=== PATIENT | female | born 1945 | race Caucasian/White ===

== ENCOUNTER 2021-05-24 13:35 | Emergency (ER) | payer MEDICARE, SELFPAY ==
[2021-05-24 13:37] VITALS: BP 150/74; PULSE 104; RESP 20; TEMP 37.4; O2SAT 89; BMI 26.9
[2021-05-24 13:48] VITALS: O2SAT 89
[2021-05-24 14:02] VITALS: BP 144/68; PULSE 82; RESP 16; TEMP 36.8; O2SAT 93
--- NOTE | 2021-05-24 14:35 | EDS_ITS ---
HPI History of Present Illness Chief Complaint: Shortness of Breath Narrative Narrative: Patient presenting due to potential complications of coronavirus. Patient states that she has been sick for around a week now, she has not had a confirmatory test which she has all of the correct symptoms. Patient states she has been having waxing and waning fevers, dry nonproductive cough. She reports that she has been having nausea with decreased p.o. intake as well as some loose stools. Patient denies any chest pain. She is not significantly short of breath. She does report that she feels weak and dehydrated. Patient has an underlying history of hypertension, she denies any underlying history of lung disease. Review of systems otherwise negative. PFSH PFSH Home Medications losartan 50 mg PO DAILY 05/24/21 [History Last Taken Unknown] ondansetron 8 mg PO Q8H PRN PRN #20 tab 05/24/21 [Rx Last Taken Unknown] Allergy/AdvReac Type Severity Reaction Status Date / Time codeine Allergy Shortness Verified 05/24/21 13:37 of breath Social History Smoking Status: Never smoker ROS ROS ED Constitutional Constitutional ED: Reports fever(s) and other Details: Malaise and generalized weakness ENT ENT ED: Denies rhinorrhea Cardiovascular Cardiovascular: Denies chest pain Respiratory/Chest Respiratory/Chest: Reports cough Gastrointestinal Gastrointestinal: Reports nausea Genitourinary Genitourinary ED: Denies dysuria or hematuria Musculoskeletal Musculoskeletal: Denies back pain Integumentary Denies rash Neurologic Neurologic: Denies paresthesias or weakness Psychiatric Psychiatric: Denies depression Endocrine Endocrinology: Denies fatigue Allergic/Immunologic Allergic/Immunologic ED: Denies urticaria EXAM Physical Exam Const Vital Signs: 05/24/21 13:37 05/24/21 14:02 05/24/21 14:39 Temperature 99.3 F H 98.2 F Temperature Source Temporal Temporal Pulse Rate 104 H 82 Respiratory Rate 20 H 16 Respiratory Effort Short of Breath Respiratory Depth Deep Respiratory Pattern Tachypnea Blood Pressure 150/74 H 144/68 H Blood Pressure Mean 99 93 Pulse Ox 89 93 Oxygen Delivery Method Room Air Room Air 05/24/21 15:01 Temperature 98.3 F Temperature Source Temporal Pulse Rate 99 Respiratory Rate 26 H Respiratory Effort Respiratory Depth Respiratory Pattern Blood Pressure 149/72 H Blood Pressure Mean 97 Pulse Ox 93 Oxygen Delivery Method Room Air Positive well nourished and well developed General Appearance ED: well developed and NAD HEENT Reports dry mucous membranes Negative for trauma or tenderness Mouth ED: Yes dry mucous membranes Mouth: dry mucous membranes Eyes EOMs intact bilaterally Neck no lymphadenopathy, supple and no JVD Chest Wall inspection of chest normal Resp normal respiratory effort Resp Narrative: Slightly coarse breath sounds noted in the bases bilaterally Cardio regular rate, regular rhythm, no murmurs and peripheral pulses 2+ throughout GI normal to inspection, nondistended, normoactive bowel sounds, non-tender and no masses Palpation: soft Back/Spine normal to inspection Extremity normal to inspection General Extremety ED: Negative for tenderness Neuro oriented x3 and no sensory deficits noted Sensorium / Orientation: alert Motor Exam: strength 5/5 throughout Psych mental status grossly normal Skin no rashes or lesions noted MDM MDM MDM Narrative Medical decision making narrative: Patient presented with complications of coronavirus. Patient was not found to be hypoxic. She is somewhat dry. Patient was given a liter of IV saline, was given Tylenol as well as Zofran. Laboratory work-up shows the patient to have no significant electrolyte derangements, CBC was unremarkable. Chest x-ray by my personal review as well as radiology shows changes consistent with coronavirus. Patient is remained stable in the emergency department does not have hypoxia is greater than 1 week out from her onset of illness. She does not qualify for monoclonal antibodies, does likewise also not need admission. Patient was recommended expectant management measures at this time. Patient will follow-up with primary care. She understands signs and symptoms which to return. Lab Data Labs: Laboratory Results - last 24 hr 05/24/21 05/24/21 14:48 14:48 WBC 3.9 L RBC 4.65 Hgb 13.5 Hct 40.8 MCV 87.7 MCH 29.0 MCHC 33.1 RDW Std Deviation 43.6 RDW Coeff of Bar 13.6 Plt Count 178 MPV 9.3 Immature Gran % (Auto) 0.300 Neut % (Auto) 79.5 H Lymph % (Auto) 14.5 L [place] % (Auto) 5.4 Eos % (Auto) 0.0 Baso % (Auto) 0.3 Absolute Neuts (auto) 3.1 Absolute Lymphs (auto) 0.56 L Nucleated RBC % 0 Differential Comment SCANNED Diff Path Review May foll Sodium 134 L Potassium 3.9 Chloride 98 Carbon Dioxide 29.0 Anion Gap 7 BUN 12 Creatinine 0.81 Estim Creat Clear Calc 48.11 Est GFR (MDRD) Af Amer 88 Est GFR (MDRD) Non-Af 73 BUN/Creatinine Ratio 14.8 Glucose 103 Calcium 9.2 Radiography Diagnostic Testing: Radiology Impression Chest X-Ray 05/24/21 14:51 IMPRESSION: Mild increased markings are seen in the right perihilar region as well as in the left lung base. Follow-up is recommended. Electronically Signed: Khanh Prasad MD at 15:19 EDT , Service support , Discharge Plan Triage Chief Complaint: Shortness of Breath ED Provider: Willi Moya Dx/Rx/DC Orders Clinical Impression: COVID-19 Instructions: Coronavirus Disease 2019 (COVID-19): Caring for Yourself or Others Prescriptions: New ondansetron 4 mg tablet,disintegrating 8 mg PO Q8H PRN PRN (Reason: Nausea) Qty: 20 RF: 0 No Action losartan 50 mg tablet 50 mg PO DAILY RF: 0 Primary Care Provider: Brandin Ronquillo Referrals: Brandin Ronquillo DO [Primary Care Provider] - 1 Week Disposition Disposition: Home, Self Care
[2021-05-24 14:39] VITALS: O2SAT 92
[2021-05-24] MEDS: Ondansetron 4 MG/2 ML Vial IV (14:49)
[2021-05-24] MEDS: Acetaminophen 500 MG Tablet 1000 MG PO (14:49)
[2021-05-24] MEDS: 0.9% Normal Saline 1,000 ML 1000 ML IV (14:49)
--- NOTE | 2021-05-24 14:51 | RAD_ITS ---
STUDY: X-RAY CHEST REASON FOR EXAM: Female, 75 years old. Covid TECHNIQUE: Single AP portable view of the chest. COMPARISON: None. FINDINGS: EKG electrodes are seen. Mild increased markings in the right perihilar region suggestive of early infiltrate. Mild increased markings are also seen at the left lung base. There is no demonstrated pleural abnormality. Normal size heart. Normal mediastinum and rosina. Normal visualized pulmonary arteries. There is atherosclerotic tortuosity of the aortic arch and descending thoracic aorta. There are diffuse degenerative changes of the visualized thoracic spine. Normal visualized ribs, clavicles, and shoulders. There is no demonstrated abnormality of the visualized soft tissue structures of the upper abdomen. RAD/Chest 1 View (Portable) IMPRESSION: Mild increased markings are seen in the right perihilar region as well as in the left lung base. Follow-up is recommended. Electronically Signed: Khanh Prasad MD at 15:19 EDT , Service support ,
[2021-05-24 14:59] LABS: Absolute Lymphocyte Count 0.56 X10^3/uL (0.83-4.51); Absolute Neutrophil Count 3.1 X10^3/uL (2.0-7.7); Basophil# 0.01 X10^3/uL; Basophil% 0.3 % (0-1); Hematocrit 40.8 % (37-47); Hemoglobin 13.5 g/dL (12.0-15.0); Lymphocyte # 0.56 X10^3/ul (0.83-4.51); Lymphocyte % 14.5 % (19-41); Mean Corp Hgb Conc 33.1 g/dL (32-36); Mean Corpuscular Volume 87.7 fL (81-99); Mean Platelet Vol. 9.3 fl (6.2-12.0); Monocyte# 0.21 X10^3/uL; Monocyte% 5.4 % (0-10); NRBC Flagged by Analyzer 0 % (0-5); Neutrophil # 3.07 X10^3/uL (2.7-7.7); Neutrophil % 79.5 % (47-70); POSITIVE DIFFERENTIAL YES; Platelet Count 178 K/mm3 (150-450); RBC Distribution Width CV 13.6 % (11.6-14.6); RBC Distribution Width SD 43.6 fl (35.1-43.9); Red Blood Count 4.65 M/mm3 (4.2-5.4); White Blood Count 3.9 K/mm3 (4.4-11.0)
[2021-05-24 15:01] VITALS: BP 149/72; PULSE 99; RESP 26; TEMP 36.8; O2SAT 93
[2021-05-24 15:01] LABS: Differential Indicated SCAN CRITERIA MET
[2021-05-24 15:12] LABS: Anion Gap 7 (5-15); BUN 12 mg/dL (7-18); BUN/Creat Ratio 14.8 RATIO (10-20); Calcium,Total 9.2 mg/dL (8.5-10.1); Chloride 98 mmol/L (98-107); Creatinine, Serum 0.81 mg/dL (0.55-1.02); EST Glomerular Filtration Rate 73 mL/min (>60); Est Glom Filt Rate - Afr Amer 88 mL/min (>60); Estimated Creatinine Clearance 48.11 ml/min; Glucose 103 mg/dL (74-106); Potassium 3.9 mmol/L (3.5-5.1); Sodium Level 134 mmol/L (136-145)
[2021-05-24 15:49] LABS: Differential Comment SCANNED
[2021-05-24 16:09] VITALS: BP 130/67; PULSE 86; RESP 26; O2SAT 93
[2021-05-27 13:56] LABS: Pathologist Review Reviewed
== END 2021-05-24 16:15 | disposition home or self-care (01) ==
PROVIDERS: Emergency Provider Emergency Medicine; PCP Preventive Medicine Occupational Medicine
DX: U07.1 COVID-19 (principal); I10 Essential (primary) hypertension; Z79.899 Other long term (current) drug therapy
CPT/HCPCS: 71045; 80048; 85025; 87426; 96361; 96374; 99284; J7030; A4216; J2405